=== PATIENT | male | born 1970 | race African-American/Black ===

== ENCOUNTER 2020-11-09 08:43 | Emergency (ER) | payer SELFPAY ==
[2020-11-09] MEDS ORDERED: Dexamethasone 10 MG/ML VIAL ONE (09:11)
== END 2020-11-09 09:20 ==
LOC: ERS 08:43
DX: B34.9 Viral infection, unspecified (principal); J34.89 Other specified disorders of nose and nasal sinuses; F17.210 Nicotine dependence, cigarettes, uncomplicated
CPT/HCPCS: 99283; J1100